=== PATIENT | male | born 1945 | race Two or more races ===

== ENCOUNTER → 2017-12-23 | Outpatient (CLI) | payer MEDICARE, OTHER ==
--- NOTE | 2017-12-23 20:00 | Diagnostic Imaging Report ---
Indication: Pain Technique: Sagittal T1 FLAIR PROPELLER, sagittal T2 PROPELLOR, sagittal STIR, axial T2 PROPELLER, axial 3D COSMIC ASPIR images were obtained through the cervical spine Comparison: none FINDINGS: There is no focal cord signal abnormality. Spinal cord is normal in appearance, signal and morphology. No abnormality is noted at the craniocervical junction. There is overall mild degenerative change of the cervical spine with multilevel disc desiccation, disc space narrowing and disc osteophyte complexes. At C2/C3: No significant central canal stenosis or foraminal narrowing. At C3/C4: A small disc osteophyte complex mildly indents the thecal sac with some effacement of CSF signal anteriorly. There is no significant central canal stenosis or foraminal narrowing. At C4/C5: There is a small central disc bulge which minimally indents the thecal sac. There is no significant central canal stenosis or foraminal narrowing. At C5/C6: A small disc osteophyte complex mildly indents the thecal sac. There is no significant central canal stenosis. There is mild facet hypertrophy and mild-moderate foraminal narrowing on the right. At C6/C7: Very tiny disc osteophyte complex minimally indents the thecal sac. No significant central canal stenosis or foraminal narrowing. At C7/T1: Mild disc bulge without significant central canal stenosis or foraminal narrowing. Mild disc bulge at T1-T2 also partially visualized. Imaged paraspinal soft tissues appear grossly unremarkable. Imaged portions of the posterior fossa are grossly unremarkable. Large [id number] localizer images demonstrate possible opacity versus nodule versus artifact in the left upper lung. IMPRESSION: Overall mild degenerative change of the cervical spine, most pronounced at C5-C6 where there is foraminal narrowing on the right. Correlate with clinical symptoms. Possible opacity versus nodule versus artifact noted in the left upper lung and localizer sequence. Correlation with chest radiograph recommended.
== END | disposition home or self-care (01) ==
LOC: MRI 12:42
DX: M54.12 Radiculopathy, cervical region (principal)
CPT/HCPCS: 72141